=== PATIENT | female | born 1965 ===

== ENCOUNTER → 2018-05-25 | Outpatient (CLI) | payer OTHER ==
[2018-05-25 07:37] LABS: Anion Gap 9 (5-15); Blood Urea Nitrogen 17 mg/dL (7-18); Carbon Dioxide 25 mmol/L (21-32); Chloride 107 mmol/L (98-107); Glucose 126 mg/dL (74-106); Potassium 4.2 mmol/L (3.5-5.1); Sodium 141 mmol/L (136-145)
[2018-05-25 07:38] LABS: Alanine Aminotransferase 24 U/L (13-56); Alkaline Phosphatase 102 U/L (45-117); Aspartate Aminotransferase 17 U/L (15-37); BUN/Creatinine Ratio 20.7; Bilirubin, Total 0.2 mg/dL (0.2-1.0); Calcium 8.7 mg/dL (8.5-10.1); GFR African American 95 mL/min; GFR Non-African American 78 mL/min; Total Protein 7.2 g/dL (6.4-8.2)
[2018-05-25 07:39] LABS: Creatine Kinase IFCC 99 U/L (26-192); Magnesium 2.6 mg/dL (1.6-2.6)
[2018-05-25 07:40] LABS: Lymphocytes % (auto) 36.9 % (10.0-50.0); Neutrophils % (auto) 51.9 % (37.0-80.0); White Blood Cell 7.3 10^3/uL (4.4-10.8)
[2018-05-25 07:41] LABS: Basophils % (auto) 0.7 % (0.0-2.0); Eosinophils % (auto) 2.6 % (0.0-7.0); Lymphocytes # (auto) 2.7 uL; Monocytes # (auto) 0.6 uL; Monocytes % (auto) 7.9 % (0.0-12.0); Neutrophils # (auto) 3.8 uL; Nucleated Red Blood Cells % 0.1 %
[2018-05-25 07:42] LABS: Basophils # (auto) 0 uL; Eosinophils # (auto) 0.2 uL; Hematocrit 42.3 % (36.0-46.0); Mean Corpuscular Hemoglobin 30.7 pg (28.0-32.0); Mean Corpuscular Volume 93.1 fL (80.0-100.0); Red Blood Cells 4.54 10^6/uL (4.0-5.20); Red Cell Distribution Width 14.1 % (11.8-14.3)
[2018-05-25 07:43] LABS: Platelet Count (auto) 233 10^3/uL (140-450); Prothrombin Time 10.6 sec (9.27-12.13)
[2018-05-25 07:44] LABS: INR 0.99 (0.9-1.15); Partial Thromboplastin Time 29.9 sec (23.78-33.04)
== END | disposition home or self-care (01) ==
LOC: LAB 06:59
DX: Z01.89 Encounter for other specified special examinations (principal)
CPT/HCPCS: 36415; 80053; 82550; 82553; 83735; 83880; 84436; 84443; 84480; 84484; 85025; 85610; 85730